=== PATIENT | male | born 1960 | race Caucasian/White ===

== ENCOUNTER → 2016-06-04 | Outpatient (CLI) | payer OTHER ==
[~2016-06-04] MED LIST: ABILIFY10 MG PO; ALAVERT10 M1 PO; AMARYL2 MG PO; ASPIRIN81 M1 PO; CRESTOR10 MG PO; DIOVAN80 M1 PO; JANUVIA PO; KLONOPIN0.5 MG PO; LOVAZA1 G PO; METFORMIN HCL850 MG PO; NIASPAN PO
--- NOTE | ~2016-06-04 | CT57 ---
[facility] A Service of [facility] RADIOLOGY TEXT RESULTS PATIENT: JOSE KENDRICK [facility] UN[facility] #: [id number] AGE: [address]: Matias Hartman MD SEX: M ORDER DR: [id number] [facility] [address] [place], [place] [address] [id number] O MR#: [id number] Acc #: [id number] NAME: JOSE KENDRICK. : 1960 SEX: M STUDY DATE/TIME: 06/04/2016 13:24 UNIT: [facility] ROOM: STUDY DESCRIPTION: CT Chest Wo Cont Attending Physician: Matias Hartman M.D. Referring Physician: Matias Hartman M.D. Ordering Physician: Matias Hartman M.D. Primary Care Physician: Jerel Dickey M.D. MEDICAL IMAGING REPORT This report is preliminary unless electronic signature is present EXAM Chest CT no contrast, 06/04/2016 INDICATION 55-year-old male with pleural effusion, congestion 2 weeks, short of air today. TECHNIQUE Noncontrast CT of the chest was performed. This CT exam was performed with one or more of the following radiation dose reduction techniques: automatic exposure control, adjustment of mA and/or kV according to patient size, and iterative reconstruction. COMPARISON 12/09/[address] CHEST: There is a noncalcified nodule in the left lower lobe that is unchanged for 2005 and therefore benign based on long-term stability. No new pulmonary nodule on the left. On the right there is a crescentic fluid collection in the right lung base. It measures about 10.0 x 7.0 x 2.3 cm. It does not contain air bubbles within it. Anterior to the fluid collection is compressive atelectasis or right basilar pneumonia. Differential for the fluid collection would lead with a partially loculated pleural effusion. CT cannot distinguish between infected and noninfected fluid but lack of air bubbles argues against an abscess or empyema but this should be correlated clinically and with laboratory data. Atelectatic changes are present in the right upper lobe and right middle lobe and to a lesser extent the superior segment of the right lower lobe. There is asymmetric pleural thickening on the right extending into the right lung apex. There is mild STS. [facility] A Service of [facility] RADIOLOGY TEXT RESULTS PATIENT: JOSE KENDRICK LOCATION: [facility] : 60 UNIT #: [id number] AGE: [address]: Matias Hartman MD SEX: M ORDER DR: volume loss on the right. Visualized thyroid unremarkable. No pericardial effusion or axillary adenopathy. Aorta unremarkable. Reactive-appearing mediastinal nodes are present. Included upper abdomen demonstrates surgical absence of the gallbladder. Incidental low-attenuation lesion in the left hepatic lobe (segment 2 measures 1.6 cm and density measurements suggest this is a cyst although it was not present on the 2006 study or obscured by streak artifact at that time. A benign etiology is favored absent any history of malignancy or underlying hepatic dysfunction. Definitive characterization would require multiphase protocol CT or MRI if the patient is a candidate for MRI. There is also a tiny indeterminate 4.0 mm lesion bordering segment 2 and 4A. Osseous structures demonstrate multilevel spinal degenerative change. No suspicious bone lesion. IMPRESSION 1. What appears to most likely represent a loculated pleural effusion at the right lung base measures up to 10.0 x 7.0 x 2.3 cm. It does not contain air bubbles within it but CT cannot distinguish between infected and noninfected fluid. This could less likely represent an empyema. Abscess considered even less likely. Correlate with clinical presentation and laboratory data. 2. Probable compressive atelectasis or pneumonia in the right lung base. Additional scattered areas of atelectasis and scarring in the right lung with mild volume loss on the right and pleural thickening on the right. These findings are new compared to 2006. 3. There is a noncalcified nodule in the left lower lobe that is unchanged from the 2006 study and therefore benign. Left lung otherwise clear. 4. Reactive-appearing mediastinal nodes. 5. Technically indeterminate low-attenuation lesions in the left hepatic lobe. These measure 1.6 and 0.4 cm respectively and may represent cysts but are new compared to 2006. They cannot be further assessed with noncontrast technique. See discussion above. 6. Surgical absence of the gallbladder. STAT * RESULT Dictated by... Obdulio Tai M.D. THIS IS AN ELECTRONICALLY VERIFIED REPORT Obdulio Tai M.D. at 06/04/2016 4:42 PM KELLY/rosalinda [facility] A Service of [facility] RADIOLOGY TEXT RESULTS PATIENT: JOSE KENDRICK LOCATION: [facility] : 60 UNIT #: [id number] AGE: [address]: Matias Hartman MD SEX: M ORDER DR: TD: 06/04/2016 15:26 JOB #: [id number] MEDICAL IMAGING REPORT COPY
== END | disposition home or self-care (01) ==
LOC: CCAT 13:03
DX: J90 Pleural effusion, not elsewhere classified (principal); J98.11 Atelectasis; J92.9 Pleural plaque without asbestos; R91.1 Solitary pulmonary nodule; K76.9 Liver disease, unspecified; Z90.49 Acquired absence of other specified parts of digestive tract
CPT/HCPCS: 71250

== ENCOUNTER → 2016-11-14 | Outpatient (CLI) | payer OTHER ==
--- NOTE | ~2016-11-14 | CT57 ---
[facility] A Service of [facility] RADIOLOGY TEXT RESULTS PATIENT: JOSE KENDRICK LOCATION: [facility] : 60 UNIT #: [id number] AGE: [address]: Yury Oquendo MD SEX: M ORDER DR: [id number] [facility] [address] [place], [place] [address] [id number] O MR#: [id number] Acc #: [id number] NAME: JOSE KENDRICK : 1960 SEX: M STUDY DATE/TIME: 11/14/2016 9:10 UNIT: [facility] ROOM: STUDY DESCRIPTION: CT Chest Wo Cont Attending Physician: Yury Oquendo M.D. Referring Physician: Yury Oquendo M.D. Ordering Physician: Yury Oquendo M.D. Primary Care Physician: Jerel Dickey M.D. MEDICAL IMAGING REPORT This report is preliminary unless electronic signature is present EXAM CT chest INDICATIONS Pleural effusion. Pulmonary nodule. Restaging. TECHNIQUE CT of the chest without contrast. Coronal and sagittal reconstructions were obtained. This CT exam was performed with one or more of the following radiation dose reduction techniques: automatic exposure control, adjustment of mA and/or kV according to patient size, and iterative reconstruction. COMPARISON CT chest 06/04/2016 and 12/09/2005. FINDINGS There is some atelectasis in the right lung. There is moderate atelectasis or scarring in the right lung. There is associated pleural thickening and a small loculated pleural effusion in the right posterior hemithorax. The effusion has not significantly changed from the prior exam, measuring 2 cm in thickness compared to 2.1 cm previously. There is some associated atelectasis in the right lower lobe. The left lung is clear. Central airways are patent. No pathologically enlarged mediastinal or hilar lymph nodes. No pericardial effusion. There is a low attenuation cyst in the left hepatic lobe. No acute osseous abnormalities. [facility] A Service of [facility] RADIOLOGY TEXT RESULTS PATIENT: JO[facility] KENDRICK [id number] 60 UNIT #: [id number] AGE: [address]: Yury Oquendo MD SEX: M ORDER DR: There is a small benign 5-mm noncalcified pulmonary nodule in the left lower lobe, unchanged from 2006. IMPRESSION 1. Small loculated pleural effusion in the right posterior hemithorax is unchanged from the prior study. 2. Associated pleural thickening with some parenchymal scarring/atelectasis is also unchanged. Dictated by... Malik Linn M.D. THIS IS AN ELECTRONICALLY VERIFIED REPORT Malik Linn M.D. at 11/14/2016 3:41 PM GRISEL/dyllan TD: 11/14/2016 14:27 JOB #: [id number] MEDICAL IMAGING REPORT Page 1 of 1 COPY
== END | disposition home or self-care (01) ==
LOC: CCAT 08:37
DX: J90 Pleural effusion, not elsewhere classified (principal); J92.9 Pleural plaque without asbestos
CPT/HCPCS: 71250